=== PATIENT | male | born 1980 | race Two or more races ===

== ENCOUNTER 2019-01-10 00:01 | Emergency (ER) | payer OTHER ==
[~2019-01-10] VITALS: Ht 170.2 cm; Wt 104.3 kg
[~2019-01-10 00:01] MED LIST: ANTIVERT25 M1 PO; VISTARIL50 MG PO; [UNRECOGNIZED DRUG - OTHER]
[2019-01-10] MEDS ORDERED: SEROQUEL50 MG (00:11)
[2019-01-10] MEDS ORDERED: KETO10TA2 PO (05:14)
== END 2019-01-10 05:29 ==
LOC: ER 00:01
DX: M25.561 Pain in right knee (principal)

== ENCOUNTER → 2021-10-16 | Emergency (ER) | payer OTHER ==
[~2021-10-16] VITALS: Ht 170.2 cm; Wt 94.3 kg
[~2021-10-16] MED LIST changes: +AMOX-CLAV 875-1 EACH PO; +INTESTINEX680 M1 PO; +KETO10TA2 PO; +SEROQUEL50 MG
== END | disposition home or self-care (01) ==
LOC: ER 00:33
DX: L02.511 Cutaneous abscess of right hand (principal); B96.89 Other specified bacterial agents as the cause of diseases classified elsewhere